=== PATIENT | male | born 1965 | race Caucasian/White ===

== ENCOUNTER 2019-10-08 08:29 | Day surgery (SDC) | payer BC ==
[~2019-10-08] VITALS: Ht 170.2 cm; Wt 73.2 kg
[~2019-10-08 08:29] MED LIST: MOTRIN 800800 MG/TAB PO; NORCO PO; SINGULAIR10 MG PO
[2019-10-08 08:51] VITALS: BP 116/60; PULSE 67; TEMP 98.7
[2019-10-08] MEDS ORDERED: SINGULAIR 110 MG/TAB PO (08:55)
[2019-10-08] MEDS ORDERED: ASPIRIN 81M81 MG/TA2 PO (08:57)
[2019-10-08 10:25] VITALS: BP 104/74; PULSE 55; TEMP 97.9
--- NOTE | 2019-10-08 10:25 | NUR ---
Patient brought back to [facility] [address], ambulated to chair with assist. Placed on monitors, vital signs stable. States hes very light sensitive at this time, would like lights dim. Denies pain. Denies something to eat or drink at this time. Report recieved from Janice CORDOVA. Warm blanket provided. Call alves within reach. Will continue to monitor.
[2019-10-08 10:40] VITALS: BP 105/73; PULSE 54
--- NOTE | 2019-10-08 10:40 | NUR ---
Patient continues to rest at this time. Vital signs stable. Will monitor.
[2019-10-08 10:55] VITALS: BP 106/77; PULSE 80
--- NOTE | 2019-10-08 10:55 | NUR ---
Patient awake and alert at this time. States he feels much better. Would like juice and a muffin. Will monitor.
[2019-10-08 11:10] VITALS: BP 117/90; PULSE 61
--- NOTE | 2019-10-08 11:10 | NUR ---
Patient states he is feeling great and ready to go home. IV removed, discharge instructions reviewed with patient. Verbalized understanding. called to pick patient up at front lobby. Patient to get dressed at this time.
--- NOTE | 2019-10-08 11:20 | NUR ---
Patient brought down to lobby via wheel chair. All posessions in hand. to drive patient home.
== END 2019-10-08 11:20 | disposition home or self-care (01) ==
LOC: SDCO 08:29
DX: Z12.11 Encounter for screening for malignant neoplasm of colon (principal); K57.30 Diverticulosis of large intestine without perforation or abscess without bleeding; E78.5 Hyperlipidemia, unspecified; G47.33 Obstructive sleep apnea (adult) (pediatric); J45.909 Unspecified asthma, uncomplicated; Z79.82 Long term (current) use of aspirin
CPT/HCPCS: J2704; J7030

== ENCOUNTER → 2021-06-08 | Outpatient (CLI) | payer BC ==
[~2021-06-08] MED LIST changes: +ASPIRIN 81M81 MG/TA2 PO; +SINGULAIR 110 MG/TAB PO
== END ==
LOC: COL.RAD 13:30
DX: M43.17 Spondylolisthesis, lumbosacral region (principal); M41.86 Other forms of scoliosis, lumbar region

== ENCOUNTER 2021-06-23 12:45 | Outpatient (CLI) | payer BC ==
[~2021-06-23] VITALS: Ht 170.2 cm; Wt 80.6 kg
[2021-06-23 13:12] VITALS: BP 133/80; PULSE 58; TEMP 98.7
[2021-06-23 14:50] VITALS: BP 147/84; PULSE 67
[2021-06-23 15:00] VITALS: BP 128/80; PULSE 62
[2021-06-23 15:15] VITALS: BP 125/74; PULSE 58
[2021-06-23 15:30] VITALS: BP 124/85; PULSE 57
[2021-06-23 15:45] VITALS: BP 130/80; PULSE 58
--- NOTE | 2021-06-23 16:05 | NUR ---
DC instructions reviewed with pt, he expresses understanding. Bandaid to puncture site remains clean, dry and intact. Pt ambulates to restroom with steady gait. He is assisted out to 's car by wheelchair.
== END 2021-06-23 16:05 | disposition home or self-care (01) ==
LOC: COL.RAD 12:45
DX: M51.26 Other intervertebral disc displacement, lumbar region (principal); M48.061 Spinal stenosis, lumbar region without neurogenic claudication
CPT/HCPCS: Q9965